=== PATIENT | female | born 1965 | race Caucasian/White ===

== ENCOUNTER 2016-07-31 13:31 | Inpatient (IN) | payer MEDICAID, OTHER ==
--- NOTE | 2016-07-31 14:02 | ED ---
Psych HPI - General Chief Complaint: Psychiatric Symptoms Stated Complaint: suicidal Time Seen by Provider: 07/31/16 13:53 Source: patient, RN notes reviewed Mode of arrival: ambulatory Limitations: no limitations - History of Present Illness Initial Comments: 50-year-old female presents emergency department for psychiatric evaluation. Patient states she is severely depressed and suicidal. She's had suicidal thoughts last 2 months which have been worsening. Patient had a plan to take all over pills and drink antifreeze. She states she actually brought antifreeze but does not drink it. She states she finally told her therapist about how she is feeling because she has been hiding it in which her therapist told her go to the emergency department or should COPD. Patient denies any illicit drug abuse. Patient states that she has a history of alcohol abuse and has recently started drinking again secondary to his depression. Patient states she was taken Zoloft in which she was prescribed last year for similar thoughts of suicide and depression and she states it was helping the time but has recently stopped helping so she stopped taking it. Patient has no physical complaints denies any chest pain, shortness breath, nausea vomiting. - Related Data Home Medications Medication Instructions Recorded Confirmed Mirtazapine [Remeron] 15 mg PO HS 07/31/16 07/31/16 Terbinafine HCl [LamISIL] 250 mg PO DAILY 07/31/16 07/31/16 cloNIDine HCL [Catapres] 0.1 mg PO BID PRN 07/31/16 07/31/16 Allergies Allergy/AdvReac Type Severity Reaction Status Date / Time codeine Allergy Nausea & Verified 07/31/16 14:30 Vomiting Review of Systems ROS Statement: Those systems with pertinent positive or pertinent negative responses have been documented in the HPI. ROS Other: All systems not noted in ROS Statement are negative. Past Medical History Past Medical History: Vascular Disorder Additional Past Medical History / Comment(s): Bilateral legs. History of Any Multi-Drug Resistant Organisms: None Reported Additional Past Surgical History / Comment(s): Right Leg: Laser Surgery to remove varicose veins in 2010. Left Leg: Laser Surgery to remove varicose veins in 2011 Past Anesthesia/Blood Transfusion Reactions: No Reported Reaction Past Psychological History: Anxiety, Depression, PTSD Smoking Status: Never smoker Past Alcohol Use History: Abuse, Daily Additional Past Alcohol Use History / Comment(s): pt admits to drinking "just under 1/5th of liquor per day." Past Drug Use History: Prescription Drug Abuse Additional Drug Use History / Comment(s): mj card - Past Family History Mother Additional Family Medical History / Comment(s): Jaylen reports her mother has struggled with mental illness. General Exam Limitations: no limitations General appearance: alert, in no apparent distress, anxious Head exam: Present: atraumatic, normocephalic, normal inspection Neck exam: Present: normal inspection, full ROM. Absent: tenderness, meningismus, lymphadenopathy Respiratory exam: Present: normal lung sounds bilaterally. Absent: respiratory distress, wheezes, rales, rhonchi, stridor Cardiovascular Exam: Present: normal rhythm, tachycardia, normal heart sounds. Absent: systolic murmur, diastolic murmur, rubs, gallop, clicks GI/Abdominal exam: Present: soft, normal bowel sounds. Absent: distended, tenderness, guarding, rebound, rigid Neurological exam: Present: alert, oriented X3, CN II-XII intact Psychiatric exam: Present: depressed, anxious Skin exam: Present: warm, dry, intact, normal color. Absent: rash Course Vital Signs 07/31/16 13:45 Temperature 96.8 F L Pulse Rate 117 H Respiratory 18 Rate Blood Pressure 141/76 O2 Sat by Pulse 99 Oximetry Medical Decision Making - Lab Data Lab Results 07/31/16 Range/Units 14:30 Urine Opiates Screen Not Detected (NotDetected) Ur Oxycodone Screen Not Detected (NotDetected) Urine Methadone Screen Not Detected (NotDetected) Ur Propoxyphene Screen Not Detected (NotDetected) Ur Barbiturates Screen Not Detected (NotDetected) U Tricyclic Antidepress Not Detected (NotDetected) Ur Phencyclidine Scrn Not Detected (NotDetected) Ur Amphetamines Screen Not Detected (NotDetected) U Methamphetamines Scrn Not Detected (NotDetected) U Benzodiazepines Scrn Detected H (NotDetected) Urine Cocaine Screen Not Detected (NotDetected) U Marijuana (THC) Screen Not Detected (NotDetected) Disposition Clinical Impression: Depression, Suicidal ideation Disposition: ADMITTED IP TO THIS [facility] Condition: Stable Referrals: Hilda Garcia, DO [Primary Care Provider] - 1-2 days
[2016-07-31] MEDS ORDERED: MAG HYDROX/AL HYDROX/SIMETH 30 ML CUP PO PRN (16:36)
[2016-07-31] MEDS: MIRTAZAPINE 15 MG TAB PO SCH (21:15)
[2016-07-31] MEDS: cloNIDine HCL 0.1 MG TAB PO PRN (21:15)
[2016-07-31] MEDS ORDERED: hydrOXYzine PAMOATE 25 MG CAP PO STA (21:17)
[2016-08-01] MEDS: TERBINAFINE 250 MG TAB PO SCH (08:41)
[2016-08-01] MEDS: ACETAMINOPHEN TAB 325 MG TAB PO PRN (08:41)
[2016-08-01] MEDS: LORazepam 1 MG TAB PO PRN ×2 (08:41→19:19)
[2016-08-01 08:52] LABS: Basophils % (A) 0 %; CH 29.7; CHCM 32.8; Eosinophils # (A) 0.2 k/uL (0-0.7); Eosinophils % (A) 3 %; HCT 37.4 % (34.0-46.0); HDW 2.38; HGB 12.4 gm/dL (11.4-16.0); Luc # (Auto) 0.15; Luc % (Auto) 2; Lymphocytes # (A) 2.1 k/uL (1.0-4.8); Lymphocytes % (A) 32 %; MCH 30.2 pg (25.0-35.0); MCHC 33.2 g/dL (31.0-37.0); Mean Platelet Volume 6.6; Monocytes # (A) 0.3 k/uL (0-1.0); Monocytes % (A) 4 %; Neutrophils # (A) 3.9 k/uL (1.3-7.7); Neutrophils % (A) 58 %; RBC 4.11 m/uL (3.80-5.40); RDW 13.7 % (11.5-15.5); WBC 6.7 k/uL (3.8-10.6); WBC (Perox) 6.98
[2016-08-01 10:01] LABS: ALT 16 U/L (9-52); AST 16 U/L (14-36); Alkaline Phosphatase 75 U/L (38-126); Anion Gap 9 mmol/L; Blood Urea Nitrogen 13 mg/dL (7-17); Carbon Dioxide 27 mmol/L (22-30); Chloride 107 mmol/L (98-107); Glucose 92 mg/dL (74-99); Non-African American GFR(MDRD) >60 (>60 ml/min/1.73 sqM); Potassium 3.9 mmol/L (3.5-5.1); Sodium 143 mmol/L (137-145); Total Bilirubin 0.5 mg/dL (0.2-1.3); Total Protein 7.4 g/dL (6.3-8.2)
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
[2016-08-01] MEDS: GABAPENTIN 100 MG CAP PO SCH ×3 (11:22→21:15)
[2016-08-01] MEDS: VENLAFAXINE HCL ER 37.5 MG CAP PO SCH (11:22)
--- NOTE | 2016-08-01 14:24 | P.HPIM ---
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 She stated that she has been dealing with depression for quite some time she has been on Zoloft for quite sometime and has not worked very well patient felt quite depressed and she wanted to come to the ER for evaluation she ended up admitted to the mental health unit for evaluation she was placed on venlafaxine 37.5 mg orally bedtime along with the lithium carbonate 150 mg at bedtime. patient is complaining of increased rash on both upper extremities that has been itching pierced to be macular papular rash patient has not changed any of her detergent or any lotion and she did receive a dose of hydroxyzine yesterday that helped quite a bit we will place her on hydroxyzine 10 mg orally twice every day as needed along with clobetasol cream 0.05% to be applied twice every day as needed. Review of Systems Constitutional: Denies anorexia, Denies chronic headaches, Denies chronic pain, Denies lethargy, Denies malaise Eyes: denies blurred vision, denies bulging eye, denies decreased vision, denies diplopia Ears, nose, mouth and throat: Denies dysphagia, Denies neck lump, Denies swelling in throat, Denies sore throat Cardiovascular: Reports high blood pressure, Denies chest pain, Denies dyspnea on exertion, Denies phlebitis, Denies rapid heart beat, Denies shortness of breath, Denies syncope Respiratory: Denies congestion, Denies cough, Denies cough with sputum, Denies home oxygen, Denies sleep apnea, Denies snoring, Denies wheezing Gastrointestinal: Denies abdominal pain, Denies bloating, Denies BRBPR, Denies excessive gas, Denies melena, Denies nausea, Denies vomiting Genitourinary: Denies dysuria, Denies hematuria Musculoskeletal: Denies fractures, Denies frequent falls, Denies low back pain Musculoskeletal: absent: ankle pain, ankle stiffness, ankle swelling, elbow pain , elbow stiffness, elbow swelling, foot pain, foot stiffness, foot swelling, hand pain, hand stiffness, hand swelling, hip pain, hip stiffness, hip swelling , knee pain, knee stiffness, knee swelling, shoulder pain, shoulder stiffness, shoulder swelling, wrist pain, wrist stiffness, wrist swelling Integumentary: Denies pruritus, Denies rash Neurological: Denies numbness, Denies weakness Psychiatric: Reports anxiety, Reports depression, Reports sleep disturbances, Reports suicidal ideation Endocrine: Denies fatigue, Denies weight change Past Medical History Past Medical History: Hypertension, Vascular Disorder Additional Past Medical History / Comment(s): Bilateral legs, HTM,Vein stripping ,Spondylosis of the cervical spine./ History of Any Multi-Drug Resistant Organisms: None Reported Additional Past Surgical History / Comment(s): Right Leg: Laser Surgery to remove varicose veins in 2010. Left Leg: Laser Surgery to remove varicose veins in 2011,Rhinoplasty. Past Anesthesia/Blood Transfusion Reactions: No Reported Reaction Past Psychological History: Anxiety, Depression, PTSD Smoking Status: Never smoker Past Alcohol Use History: Abuse, Daily Additional Past Alcohol Use History / Comment(s): pt admits to drinking "just under 1/5th of liquor per day." Past Drug Use History: Prescription Drug Abuse Additional Drug Use History / Comment(s): mj card - Past Family History Mother Family Medical History: No Reported History ( mother was in her early 40s and she passed running into traffic she was suicidal. With major depressive disorder) Additional Family Medical History / Comment(s): Jaylen reports her mother has struggled with mental illness. Father Family Medical History: Unable to Obtain ( patient doesn't know much about her father.) Brother(s) Family Medical History: No Reported History ( patient has 2 biological brothers one of them from hanging in long-term, other one approximately in the service.) Son(s) Family Medical History: No Reported History Medications and Allergies Home Medications Medication Instructions Recorded Confirmed Type Mirtazapine [Remeron] 15 mg PO HS 07/31/16 07/31/16 History Terbinafine HCl [LamISIL] 250 mg PO DAILY 07/31/16 07/31/16 History cloNIDine HCL [Catapres] 0.1 mg PO BID PRN 07/31/16 07/31/16 History Allergies Allergy/AdvReac Type Severity Reaction Status Date / Time codeine Allergy Nausea & Verified 07/31/16 14:30 Vomiting Physical Exam Vitals: Vital Signs Temp Pulse Pulse Pulse Resp BP BP 08/01/16 10:24 98 16 147/70 08/01/16 08:44 107 H 18 141/65 08/01/16 06:47 98.1 F 77 18 07/31/16 21:16 91 16 07/31/16 17:30 97.2 F L 98 20 07/31/16 16:50 98.3 F 75 20 147/73 07/31/16 13:45 96.8 F L 117 H 18 141/76 BP Pulse Ox 08/01/16 10:24 08/01/16 08:44 08/01/16 06:47 168/75 07/31/16 21:16 173/91 07/31/16 17:30 142/86 07/31/16 16:50 99 07/31/16 13:45 99 - Constitutional General appearance: no acute distress - EENT Eyes: anicteric sclerae, EOMI, PERRLA, no ptosis, no scleral icterus, normal appearance ENT: hearing grossly normal, NA/AT, normal oropharynx, no thrush Ears: bilateral: normal - Neck Neck: no lymphadenopathy, normal ROM, rigidity, no stridor, no thyromegaly Carotids: bilateral: upstroke normal Thyroid: bilateral: normal size - Respiratory Respiratory: bilateral: diminished, negative: dullness, rales, rhonchi, wheezing , prolonged expiration, prolonged inspiration - Cardiovascular Rhythm: regular Heart sounds: normal: S1, S2 Abnormal Heart Sounds: no rub, no S3 Gallop, no S4 Gallop, no click - Gastrointestinal General gastrointestinal: normal bowel sounds, no soft, no tenderness, no umbilical hernia, no ventral hernia - Integumentary Integumentary: normal, normal turgor, rash ( bilateral upper extremity maculopapular rash service of contact dermatitis./) - Neurologic Neurologic: CNII-XII intact - Musculoskeletal Musculoskeletal: strength equal bilaterally - Psychiatric Psychiatric: A&O x's 3, no appropriate affect, no intact judgment & insight Results CBC & Chem 7: 08/01/16 08:08 08/01/16 08:08 Labs: Abnormal Lab Results - Last 24 Hours (Table) 07/31/16 08/01/16 Range/Units 14:30 08:08 TSH 11.400 H (0.465-4.680) mIU/L U Benzodiazepines Scrn Detected H (NotDetected) Thrombosis Risk Factor Assmnt - DVT/VTE Prophylaxis DVT/VTE Prophylaxis: Low risk, early ambulation encouraged Assessment and Plan Plan: assessment and plan: 1. depression with suicidal ideation. patient was started on venlafaxine 37.5 mg orally once every day, lithium carbonate 150 mg orally bedtime, as well as Ativan as needed. we'll be placed on suicidal precautions and she will participate with the mental health unit programs. 2. mood disorder. Continue patient on Remeron 15 mg at bedtime along with venlafaxine 37.5 mg orally once at bedtime along with Ativan as needed. 3. alcohol use and dependence. Patient will be monitored for alcohol withdrawal she will be placed on gabapentin 100 mg orally 3 times every day, she is also started on clonidine 0.1 mg orally twice every day as needed patient also will be monitored for any actual seizure. 4. skin rash in bilateral upper extremities service of chondrodermatitis. Hydroxyzine 10 mg orally twice every day as needed, clobetasol cream 0.05% to be applied twice every day. 5. onychomycosis. continue terbinafine 1250 mg orally once every day, monitor the patient liver function tests as well as CBC every 4-6 weeks. 6. thank you for the consult we will follow the patient with you.
[2016-08-01] MEDS: CLOBETASOL PROP 0.05% CR 15GM TOPICAL SCH ×2 (14:47→21:15)
[2016-08-01] MEDS: cloNIDine HCL 0.1 MG TAB PO PRN (18:09)
[2016-08-01] MEDS ORDERED: LITHIUM CARBONATE 150 MG CAP PO SCH (21:00)
[2016-08-01] MEDS: MIRTAZAPINE 15 MG TAB PO SCH (21:15)
[2016-08-02] MEDS: LEVOTHYROXINE 25 MCG TAB PO SCH (05:34)
[2016-08-02] MEDS: cloNIDine HCL 0.1 MG TAB PO PRN ×2 (06:35→22:03)
[2016-08-02] MEDS: VENLAFAXINE HCL ER 37.5 MG CAP PO SCH (09:23)
[2016-08-02] MEDS: TERBINAFINE 250 MG TAB PO SCH (09:24)
[2016-08-02] MEDS: GABAPENTIN 100 MG CAP PO SCH ×3 (09:26→22:00)
[2016-08-02] MEDS: LORazepam 1 MG TAB PO PRN ×2 (09:26→16:36)
[2016-08-02] MEDS: CLOBETASOL PROP 0.05% CR 15GM TOPICAL SCH ×2 (09:26→20:36)
--- NOTE | 2016-08-02 15:40 | P.PN ---
Progress Note - Text INTERVERAL HISTORY: Patient was called, she was sleeping in bed. Patient states she is feeling a bit sedated. We discussed the side effects of of medication prescribed. It is also noted that her TSH was elevated and the hospitalist started her on medication. Patient reports that she has not had thoughts of suicide today, she is surprised by this. Reports that she is hopeful that the medications will work, Still reporting dysphoria. MENTAL STATUS EXAM: Alert and oriented 3 neatly groomed makeup, speech was normal volume rate production, coherent logical goal directed. No JOE no FOI no delusions no ideas of reference. No auditory or visual hallucinations. Memory "grossly intact. Denies suicidal ideation. Mood disorder, unspecified Alcohol use disorder, severe Suicidal ideation Hypothyroid PLAN: Continue inpatient psychiatric hospitalization, for safety and treatment purposes. Suicide precautions 15 minute checks Although patient is smiling and appears euthymic, she reports depression. Some recent studies have suggested that there are patients who are depressed but presented as if euthymic. Will continue to assess her and monitor her response to treatment. Continue gabapentin 100 mg 3 times a day pain/anxiety/EtOH use Increase Effexor to 75 mg daily Increase lithium 300 mg daily at bedtime. Continue Remeron 15 mg daily at bedtime Patient started on low-dose Synthroid 0.25
[2016-08-02] MEDS: MIRTAZAPINE 15 MG TAB PO SCH (20:39)
[2016-08-02] MEDS: LITHIUM CARBONATE 300 MG CAP PO SCH (20:39)
[2016-08-03] MEDS: LEVOTHYROXINE 25 MCG TAB PO SCH (06:12)
[2016-08-03] MEDS: LORazepam 1 MG TAB PO PRN ×2 (06:34→14:35)
[2016-08-03] MEDS ORDERED: VENLAFAXINE HCL 75 MG TAB PO SCH (09:00)
--- NOTE | 2016-08-03 09:12 | P.PN ---
Progress Note - Text INTERVERAL HISTORY: Discussed in team treatment meeting, review of record, met with patient. Patient seen in hallway after breakfast, came to office. Patient reports that she had a restless night feeling hot and sweaty. Possibly this is due to an increase of the antidepressants and/or potentiation of antidepressants with lithium. She denies any other side effects related to the increase of lithium or Effexor. Patient reports that this suicide ideation has diminished, although still present. She has been participating in groups, says she has to push herself, so more than likely still having lack of motivation and fatigue and anhedonia. As noted yesterday her TSH was elevated and she has just started on Levothyroxine. Reports that she is hopeful that the medications will work, Still reporting dysphoria. MENTAL STATUS EXAM: Alert and oriented 3 fair groomed no makeup, speech was normal volume rate production, coherent logical goal directed. No JOE no FOI no delusions no ideas of reference. No auditory or visual hallucinations. Memory "grossly intact. Denies suicidal ideation. Mood disorder, unspecified Alcohol use disorder, severe Suicidal ideation Hypothyroid PLAN: Continue inpatient psychiatric hospitalization, for safety and treatment purposes. Suicide precautions 15 minute checks Although patient is smiling and appears euthymic, she reports depression. Some recent studies have suggested that there are patients who are depressed but present euthymic. Will continue to assess her and monitor her response to treatment. Continue gabapentin 100 mg 3 times a day pain/anxiety/EtOH use Increase Effexor to 150 mg today, with plan to increase tomorrow 225mg. Continue lithium 300 mg daily at bedtime, for purported protection from suicide. Check lithium level tomorrow, even though not at steady state for 5 days, this is a low dose. Continue Remeron 15 mg daily at bedtime Patient started on low-dose Synthroid 0.25
[2016-08-03] MEDS: CLOBETASOL PROP 0.05% CR 15GM TOPICAL SCH ×2 (09:17→21:24)
[2016-08-03] MEDS: TERBINAFINE 250 MG TAB PO SCH (09:18)
[2016-08-03] MEDS: cloNIDine HCL 0.1 MG TAB PO PRN (09:19)
[2016-08-03] MEDS: VENLAFAXINE HCL ER 150 MG CAP PO SCH (09:19)
[2016-08-03] MEDS: GABAPENTIN 100 MG CAP PO SCH ×3 (09:39→21:21)
[2016-08-03] MEDS: hydrOXYzine HCL 10 MG TAB PO PRN (10:14)
[2016-08-03] MEDS: MAGNESIUM HYDROXIDE 2,400 MG/10 ML CUP PO PRN (14:34)
[2016-08-03] MEDS: MIRTAZAPINE 15 MG TAB PO SCH (21:21)
[2016-08-03] MEDS: LITHIUM CARBONATE 300 MG CAP PO SCH (21:21)
[2016-08-04] MEDS: LEVOTHYROXINE 25 MCG TAB PO SCH (05:40)
[2016-08-04] MEDS: TERBINAFINE 250 MG TAB PO SCH (08:58)
[2016-08-04] MEDS: CLOBETASOL PROP 0.05% CR 15GM TOPICAL SCH ×2 (08:58→20:37)
[2016-08-04] MEDS: GABAPENTIN 100 MG CAP PO SCH ×3 (08:58→21:31)
[2016-08-04] MEDS: VENLAFAXINE HCL ER 150 MG CAP PO SCH (08:59)
[2016-08-04] MEDS: VENLAFAXINE HCL ER 75 MG CAP PO SCH (09:30)
[2016-08-04] MEDS: LORazepam 1 MG TAB PO PRN ×2 (09:30→20:38)
--- NOTE | 2016-08-04 10:38 | P.PN ---
Progress Note - Text INTERVERAL HISTORY: Discussed in team treatment meeting, review of record, met with patient. Patient seen in hallway after breakfast, reading a book, came to office. Patient reports that she slept well last night but had movement in leg and arm, was not disturbed by this. She denies any other side effects related to the increase of lithium or Effexor. Patient reports that this suicide ideation has diminished, although still present. She has been attending groups, today says she spoke for the first time, feels it might be helpful. Feels she is more motivated and has picked up a book, compared to a week ago this is an improvement and says although having to reread paragraphs this is good. Slight change in motivation and fatigue and anhedonia. As noted yesterday her TSH was elevated and she has just started on Levothyroxine. Reports that she is hopeful that the medications will work, Still reporting dysphoria. MENTAL STATUS EXAM: Alert and oriented 3 well groomed with makeup, speech was normal volume rate production, coherent logical goal directed. No JOE no FOI no delusions no ideas of reference. No auditory or visual hallucinations. Memory "grossly intact" but has difficulty in concentration and attention, has to reread. Mood dysphoric, affect full range, decreased intensity Denies suicidal ideation. Mood disorder, unspecified Alcohol use disorder, severe Suicidal ideation Hypothyroid PLAN: Continue inpatient psychiatric hospitalization, for safety and treatment purposes. Has reported myoclonic jerking, this is likely due to serotonin medications, concern would be if she progressed to Serotonin Syndrome. Will monitor closely, ask vital to be taken Q shift. Continue suicide precautions 15 minute checks Although patient is smiling and appears euthymic, she reports continued dysphoria, diminished but not absent suicidal ideation. Some recent studies have suggested that there are patients who are depressed but present as if euthymic. Will continue to assess her and monitor her response to treatment. Continue gabapentin 100 mg 3 times a day pain/anxiety/EtOH use Increase Effexor to 225mg today, with plan to monitor for serotonin syndrome, bruxism or restless leg. Continue lithium 300 mg daily at bedtime, for purported protection from suicide. Check lithium level tomorrow, even though not at steady state for 5 days, this is a low dose. Continue Remeron 15 mg daily at bedtime Patient started on low-dose Synthroid 0.25
[2016-08-04] MEDS: ACETAMINOPHEN TAB 325 MG TAB PO PRN (12:56)
[2016-08-04] MEDS: cloNIDine HCL 0.1 MG TAB PO PRN (17:18)
[2016-08-04] MEDS: MIRTAZAPINE 15 MG TAB PO SCH (20:37)
[2016-08-04] MEDS: LITHIUM CARBONATE 300 MG CAP PO SCH (20:37)
[2016-08-05] MEDS: LEVOTHYROXINE 25 MCG TAB PO SCH (05:40)
[2016-08-05] MEDS: CLOBETASOL PROP 0.05% CR 15GM TOPICAL SCH ×2 (08:22→20:54)
[2016-08-05] MEDS: TERBINAFINE 250 MG TAB PO SCH (08:22)
[2016-08-05] MEDS: GABAPENTIN 100 MG CAP PO SCH ×3 (08:22→20:54)
[2016-08-05] MEDS: VENLAFAXINE HCL ER 75 MG CAP PO SCH (08:23)
[2016-08-05] MEDS: LORazepam 1 MG TAB PO PRN ×2 (08:25→17:57)
--- NOTE | 2016-08-05 14:03 | P.PN ---
Progress Note - Text Interval history: Patient seen in cross coverage today for Dr. De Paz. She reports that she is feeling better mood bonilla. She does describe last night after he took the Remeron she felt a "heady" feeling and also felt warm. She did get up and sit in the library for a while and then went back to sleep and was able to sleep about 6 hours. She is eating well. She is taking the Ativan about twice a day which helps her anxiety level. Mental status exam: She is alert and cooperative with the interview. Her speech is fluent, not rapid or pressured. Her thought processes are organized. Her mood overall seems to be improved. She denies any thoughts of harm to self or others. No evidence of psychosis or agitation. Plan: Patient will be maintained on current psychotropic medications. She relates that the Effexor XR has just been titrated. We will continue to monitor for side effects and monitor her ongoing response. Continue to cover this patient for Dr. De Paz through the weekend.
[2016-08-05] MEDS: hydrOXYzine HCL 10 MG TAB PO PRN (15:18)
[2016-08-05] MEDS: LITHIUM CARBONATE 300 MG CAP PO SCH (20:54)
[2016-08-05] MEDS: MIRTAZAPINE 15 MG TAB PO SCH (20:54)
[2016-08-05] MEDS: cloNIDine HCL 0.1 MG TAB PO PRN (20:55)
[2016-08-06] MEDS: LEVOTHYROXINE 25 MCG TAB PO SCH (06:18)
[2016-08-06] MEDS: GABAPENTIN 100 MG CAP PO SCH ×3 (08:56→20:45)
[2016-08-06] MEDS: CLOBETASOL PROP 0.05% CR 15GM TOPICAL SCH ×2 (08:56→20:45)
[2016-08-06] MEDS: TERBINAFINE 250 MG TAB PO SCH (08:56)
[2016-08-06] MEDS: VENLAFAXINE HCL ER 75 MG CAP PO SCH (08:56)
[2016-08-06] MEDS: LORazepam 1 MG TAB PO PRN ×2 (08:57→18:00)
--- NOTE | 2016-08-06 13:50 | P.PN ---
Progress Note - Text Interval history: Patient is seen in cross coverage today in for Dr. De Paz. She reports that the symptoms that she had 2 nights ago of like feeling a warm sensation and that her pupils dilating were improved this past night. She feels like she got about 7 hours of sleep. She is eating well today. She is attending some groups. She does talk about potential discharge planning for tomorrow. She also talks about outpatient follow-up. Mental status exam: She is alert and cooperative with the interview. Her speech is fluent, not rapid or pressured. Thought processes organized. Her mood is improved and she feels that it's even. She denies any thoughts of harm to self or others. She does not show any active evidence of psychosis. She does not show any agitation. Plan: Patient will be maintained on current psychotropic medication regimen we will continue to monitor for any adverse side effects. Dr. De Paz resume care this patient starting tomorrow. Look for potential discharge planning for tomorrow.
[2016-08-06] MEDS: hydrOXYzine HCL 10 MG TAB PO PRN (15:21)
[2016-08-06] MEDS: MAGNESIUM HYDROXIDE 2,400 MG/10 ML CUP PO PRN (15:22)
[2016-08-06] MEDS: LITHIUM CARBONATE 300 MG CAP PO SCH (20:45)
[2016-08-06] MEDS: cloNIDine HCL 0.1 MG TAB PO PRN (20:46)
[2016-08-06] MEDS: MIRTAZAPINE 15 MG TAB PO SCH (20:46)
[2016-08-07] MEDS: LEVOTHYROXINE 25 MCG TAB PO SCH (06:23)
[2016-08-07 06:54] VITALS: TEMP 98.1
[2016-08-07] MEDS: TERBINAFINE 250 MG TAB PO SCH (08:32)
[2016-08-07] MEDS: cloNIDine HCL 0.1 MG TAB PO PRN (08:37)
[2016-08-07] MEDS: LORazepam 1 MG TAB PO PRN (08:37)
[2016-08-07] MEDS: VENLAFAXINE HCL ER 75 MG CAP PO SCH (08:37)
[2016-08-07] MEDS: GABAPENTIN 100 MG CAP PO SCH (08:37)
[2016-08-07 08:40] VITALS: BP 122/75; PULSE 131; RESP 16
--- NOTE | 2016-08-07 09:27 | P.DS ---
Providers Date of admission: 07/31/16 16:27 Expected date of discharge: 08/07/16 Attending physician: Aruna De Paz MD Consults: 07/31/16 16:36 Consult Physician Routine Consulting Provider: Yaritza Hawthorne Consult Reason/Comments: history and physical Do you want consulting provider notified?: Yes Primary care physician: Hilda Garcia Hospital Course: ADMISSION HISTORY: The patient admitted for feeling suicidal, chronically, for months. She also reports that she is feeling depressed. She was placed on Zoloft in October of last year 50 mg, and found it helpful immediately for the suicidal ideation, but it did nothing for her mood she still had a hard time getting out of bed, showering, feeling motivated, and enjoying activities. She recently tapered herself off of it 2 weeks ago, and the suicidal ideation became daily consuming her thoughts for most of the day. She reports that she has had the suicidal ideation in the past but never as constant or consuming as now, she also reports depression. She reports that in her 20s she had severe alcoholism, violence and chaotic life. She began in her 30s to drink somewhat less, her life was less violent and chaotic. And in her 40s also somewhat less alcohol. As she has begun her 50s she has made the decision that she needs to abstain, and she attended [facility] and has been abstinent off and on. Most recently for the last month or so she has been drinking more to help with sleep. She reports she's been drinking a half of a fifth 2-3 3 times a week. She denied history of delirium tremors Patient denies episodes of high energy, decreased need for sleep. She does endorse episodes of risk-taking behavior such as promiscuous sexual activity but this did not occur in an episode of decreased need for sleep or other symptoms consistent with bipolar mark or hypomania. No history of psychosis. HOSPITAL COURSE: Patient was visible on the unit through most of her stay. After several days of medication she reported decreased suicidal ideation. She never displayed dysphoria, but reported dysphoria,depression, anxiety. Has tolerated a combination of medication starting with lithium at bedtime 300 mg low dose for purported reduction of suicide. Combining that with Effexor XR to 225 mg a day. She had been on Remeron 15 mg at bedtime and that was kept. She had side effects of feeling hot, but not sweating, no increased temperature, some movements at night that might be myoclonic and we checked her VS regularly and she is noted to have rapid heart rate, she has been on clonidine at home . The warm sensation resolved after 2 nights. At one point there was a concern if she was moving into serotonin syndrome due to myoclonic jerks but this did not occur. She has been attending groups, today says she spoke for the first time, feels it might be helpful. Feels she is more motivated and has picked up a book, compared to a week ago this is an improvement with improved concentration and memory. Slight change in motivation, fatigue and anhedonia. It was noted during this hospitalization that her TSH was elevated and she was started on Levothyroxine. Reports that she is hopeful that the medications will work, Reports feeling sad but says no up and down, and no suicidal ideation. Patient continues have a rapid pulse and her blood pressure is within normal limits. MENTAL STATUS EXAM: Alert and oriented 3 well groomed with makeup, speech was normal volume rate production, coherent logical goal directed. No JOE no FOI no delusions no ideas of reference. No auditory or visual hallucinations. Memory "grossly intact" but has difficulty in concentration and attention, has to reread. Mood neutral, affect full range, decreased intensity Denies suicidal ideation. Mood disorder, unspecified Alcohol use disorder, severe, in early remission Suicidal ideation, resolved Hypothyroid PLAN: Discharge today. SW will arrange outpatient psychiatric treatment and recommend she receive CBT. Gabapentin 100 mg 3 times a day pain/anxiety/EtOH use Effexor to 225mg QDAY. Continue lithium 300 mg daily at bedtime, for purported protection from suicide. Continue Remeron 15 mg daily at bedtime Continue Synthroid 0.25 Pertinent Studies: TSH was elevated Procedures: none Plan - Discharge Summary New Discharge Prescriptions: New Gabapentin [Neurontin] 100 mg PO TID #90 cap hydrOXYzine HCL [Atarax] 10 mg PO BID PRN #30 tab PRN Reason: Rash Levothyroxine Sodium [Synthroid] 25 mcg PO DAILY@0630 #30 tab [place] Carbonate 300 mg PO HS #30 cap Venlafaxine HCl ER [Effexor XR] 225 mg PO DAILY #30 cap Continue cloNIDine HCL [Catapres] 0.1 mg PO BID PRN PRN Reason: HIGH BLOOD PRESSURE Terbinafine HCl [LamISIL] 250 mg PO DAILY Mirtazapine [Remeron] 15 mg PO HS Discharge Medication List Mirtazapine [Remeron] 15 mg PO HS 07/31/16 [History] Terbinafine HCl [LamISIL] 250 mg PO DAILY 07/31/16 [History] cloNIDine HCL [Catapres] 0.1 mg PO BID PRN 07/31/16 [History] Gabapentin [Neurontin] 100 mg PO TID #90 cap 08/07/16 [Rx] Levothyroxine Sodium [Synthroid] 25 mcg PO DAILY@0630 #30 tab 08/07/16 [Rx] [place] Carbonate 300 mg PO HS #30 cap 08/07/16 [Rx] Venlafaxine HCl ER [Effexor XR] 225 mg PO DAILY #30 cap 08/07/16 [Rx] hydrOXYzine HCL [Atarax] 10 mg PO BID PRN #30 tab 08/07/16 [Rx] Follow up Appointment(s)/Referral(s): Hilda Garcia DO [Primary Care Provider] - 1-2 days
[2016-08-07] MEDS: CLOBETASOL PROP 0.05% CR 15GM TOPICAL SCH (11:21)
== END 2016-08-07 13:59 | disposition home or self-care (01) | DRG 885 ==
LOC: EC 13:31 → 3MHU 16:27
PROVIDERS: ADMIT Psychiatry & Neurology Addiction Medicine; ATTEND Psychiatry & Neurology Addiction Medicine
DX: F39 Unspecified mood [affective] disorder (principal); R45.851 Suicidal ideations; I10 Essential (primary) hypertension; B35.1 Tinea unguium; F10.21 Alcohol dependence, in remission; J44.9 Chronic obstructive pulmonary disease, unspecified; E03.9 Hypothyroidism, unspecified; F43.10 Post-traumatic stress disorder, unspecified; Z79.899 Other long term (current) drug therapy; Z81.8 Family history of other mental and behavioral disorders; Z88.5 Allergy status to narcotic agent
CPT/HCPCS: 80053; 80178; 80306; 82075; 84439; 84443; 84481; 85025

== ENCOUNTER → 2016-08-31 | Outpatient (CLI) | payer OTHER ==
[2016-08-31 10:38] LABS: Blood Urea Nitrogen 14 mg/dL (7-17); Cholesterol 197 mg/dL (<200); Glucose 93 mg/dL (74-99); HDL Cholesterol 77 mg/dL (40-60); Lithium 1.2 mmol/L; Non-African American GFR(MDRD) 58 (>60 ml/min/1.73 sqM); Triglycerides 75 mg/dL (<150)
[2016-08-31 10:47] LABS: Hemoglobin A1C 5.5 % (4.2-6.1)
== END | disposition home or self-care (01) ==
LOC: LABWHC1 06:38
PROVIDERS: ATTEND Psychiatry & Neurology Psychiatry
DX: Z51.81 Encounter for therapeutic drug level monitoring (principal); Z79.899 Other long term (current) drug therapy
CPT/HCPCS: 36415; 80061; 80178; 82565; 82947; 83036; 84439; 84443; 84520

== ENCOUNTER → 2022-09-29 | Outpatient (CLI) | payer OTHER ==
--- NOTE | 2022-09-29 12:50 | P.GSHP ---
History of Present Illness H&P Date: 09/29/22 Chief Complaint: invasive ductal and lobular features right breast cancer Gaby is a 56 year old female seen in consultation for Dr. Reed regarding a right breast cancer. The patient saw the lump in her right breast about one month ago, she could also feel the [place]. [place] [address] this was BIRADS 1 . She had a [place] [address] recommendation was for right breast biopsy. She subsequently underwent a right breast ultrasound-guided core biopsy on . This revealed an 11 mm irregular hypoechoic mass at the 4 o'clock position of the right breast. Pathology confirmed this to be an invasive ductal with lobular features carcinoma. This is grade 2 ER/MD positive HER-2/aure low reactivity being sent for a FISH analysis. She also felt a lump under her left arm, but the lump dissipated. Has not noted any recent trauma or infection of the breast. She has not had any surgery on her breast. Caffeine: pop occasional nicotine: none, smokes THC daily chocolate: several times a week BCP: from 14 to 17 hormones: not taking anything Family history: maternal aunt: bilateral breast cancer maternal aunt: bilateral mastectomy maternal cousin: 5 types of cancer Hormonal History: menarche: 14 [id number], breast fed: no, age at first : 18 menopause: ablation in 50's Surgical history: Uterine ablation bilateral varicose vein ablation rhinoplasty twice chin lift Medical History: radiculopathy left shoulder scoliosis bipolar anxiety/depression PTSD History: Nicotine: Negative Alcohol:alcoholism problems in the past drug: Smokes THC daily - Constitutional Constitutional: Denies chills, Denies fever - EENT Eyes: denies blurred vision, denies pain Ears: deny: decreased hearing, tinnitus Ears, nose, mouth and throat: Reports headache, Denies sore throat - Breasts Breasts: bilateral: as per HPI - Cardiovascular Cardiovascular: Reports shortness of breath, Denies chest pain - Respiratory Respiratory: Denies cough, Denies 7 - Gastrointestinal Gastrointestinal: Denies abdominal pain, Denies diarrhea, Denies nausea, Denies vomiting - Genitourinary (Female) Genitourinary: Denies dysuria, Denies hematuria - Menstruation Menstruation: Reports postmenopausal - Musculoskeletal Comment: back and neck pain Musculoskeletal: Reports as per HPI - Integumentary Comment: Eczema - Neurological Comment: none - Psychiatric Comment: bipolar Psychiatric: Reports anxiety, Reports depression - Endocrine Endocrine: Reports weight change - Hematologic/Lymphatic Comment: none - Allergic/Immunologic Allergic/Immunologic: Reports as per HPI, Reports seasonal allergies Past Medical History Past Medical History: Hypertension, Vascular Disorder Additional Past Medical History / Comment(s): Bilateral legs, HTM,Vein stripping,Spondylosis of the cervical spine./ History of Any Multi-Drug Resistant Organisms: None Reported Additional Past Surgical History / Comment(s): Right Leg: Laser Surgery to remove varicose veins in 2010. Left Leg: Laser Surgery to remove varicose veins in 2011,Rhinoplasty. Past Anesthesia/Blood Transfusion Reactions: No Reported Reaction Past Psychological History: Anxiety, Depression, PTSD Past Alcohol Use History: Abuse, Daily Additional Past Alcohol Use History / Comment(s): pt admits to drinking "just under 1/5th of liquor per day." Past Drug Use History: Prescription Drug Abuse Additional Drug Use History / Comment(s): mj card - Past Family History Mother Family Medical History: No Reported History ( mother was in her early 40s and she passed running into traffic she was suicidal. With major depressive disorder) Additional Family Medical History / Comment(s): Jaylen reports her mother has struggled with mental illness. Father Family Medical History: Unable to Obtain ( patient doesn't know much about her father.) Brother(s) Family Medical History: No Reported History ( patient has 2 biological brothers one of them from hanging in penitentiary, other one approximately in the service.) Son(s) Family Medical History: No Reported History Medications and Allergies Home Medications Medication Instructions Recorded Confirmed Type cloNIDine HCL [Catapres] 0.1 mg PO BID PRN 07/31/16 07/31/16 History Levothyroxine Sodium [Synthroid] 25 mcg PO DAILY@0630 #30 tab 08/07/16 Rx Losartan [Cozaar] 25 mg PO DAILY 09/29/22 09/29/22 History Allergies Allergy/AdvReac Type Severity Reaction Status Date / Time codeine Allergy Nausea & Verified 09/29/22 12:23 Vomiting morphine AdvReac Vomiting Unverified 09/29/22 12:23 Surgical - Exam - General no distress - Eyes normal ocular movement - Neck trachea midline - Respiratory normal respiratory effort, clear to auscultation - Cardiovascular Rhythm: regular Heart Sounds: normal: S1, S2 - Abdomen Abdomen: soft, non tender, no guarding, no rigid, no rebound - Integumentary normal turgor - Neurologic no disoriented, no combative - Musculoskeletal normal gait, normal posture - Psychiatric oriented to time, oriented to person, oriented to place, speech is normal, memory intact Breast Exam: BRA: 34C Inspection: Bilateral grade 2 ptosis; echymosis right breast related to recent biopsy Palpation: Right breast multi-positional exam nodularity in the medial aspect near the periareolar region approximately 2 cm in size freely mobile Right axilla: No adenopathy of concern Left breast: Multiple positional exam no dominant masses or nodules of concern Left axilla: No adenopathy of concern Results Mammogram and ultrasound reviewed with radiology Assessment and Plan Assessment: Impression: radiculopathy left shoulder scoliosis bipolar anxiety/depression PTSD Right breast invasive ductal with lobular features carcinoma Plan: Presentation of case at tumor board left breast mammogram genetic testing Cc: Dr. Reed
== END ==
LOC: WWCWWP 12:06
PROVIDERS: ATTEND Surgery
DX: C50.311 Malignant neoplasm of lower-inner quadrant of right female breast (principal); M41.9 Scoliosis, unspecified; F41.9 Anxiety disorder, unspecified; F31.9 Bipolar disorder, unspecified; F17.200 Nicotine dependence, unspecified, uncomplicated; F43.10 Post-traumatic stress disorder, unspecified; I10 Essential (primary) hypertension; Z17.0 Estrogen receptor positive status [ER+]; Z85.3 Personal history of malignant neoplasm of breast; Z79.890 Hormone replacement therapy; Z79.899 Other long term (current) drug therapy; Z88.5 Allergy status to narcotic agent

== ENCOUNTER → 2022-10-11 | Outpatient (CLI) | payer OTHER ==
--- NOTE | 2022-10-12 11:57 | MM ---
Reason for Exam: Additional evaluation requested from prior study. Last screening mammogram was performed less than 1 month ago. Patient History: Menarche at age 14. First Full-Term at age 18. Postmenopausal. 09/21/2022, Ultrasound-Guided Core Biopsy on the Right side. Maternal aunt had breast cancer under age 50. Risk Values: America 5 year model risk: 1.0%. NCI Lifetime model risk: 6.2%. Prior Study Comparison: 12/12/2016 Bilateral Screening Mammogram, [facility]. 10/21/2021 Bilateral Screening Mammogram, [facility]. 09/13/2022 Right Diagnostic Mammogram, [facility]. 09/13/2022 Right Diagnostic Ultrasound, [facility]. Tissue Density: Left: The breast tissue is heterogeneously dense. This may lower the sensitivity of mammography. Findings: Analyzed By CAD. No new suspicious masses, calcifications or distortions. Overall Assessment: Negative, BI-RAD 1 Management: Screening Mammogram of both breasts in 1 year. Results were given to the patient verbally at the time of exam. Patient should continue monthly self-breast exams. A clinical breast exam by your physician is recommended on an annual basis. This exam should not preclude additional follow-up of suspicious palpable abnormalities. Note on America scores and lifetime risk: 1. A America score greater than 3% is considered moderate risk. If this is the case, consider specialist referral to assess eligibility for a risk reducing agent. 2. If overall lifetime risk for the development of breast cancer is 20% or higher, the patient may qualify for future screening with alternating mammogram and breast MRI. Electronically signed and approved by: Mark Bird DO
== END | disposition home or self-care (01) ==
LOC: RADMAMWWP 12:46
PROVIDERS: ATTEND Surgery
DX: C50.311 Malignant neoplasm of lower-inner quadrant of right female breast (principal); R92.8 Other abnormal and inconclusive findings on diagnostic imaging of breast; Z78.0 Asymptomatic menopausal state; Z80.3 Family history of malignant neoplasm of breast
CPT/HCPCS: 77065; G0279; 77061

== ENCOUNTER 2022-12-19 09:35 | Day surgery (SDC) | payer OTHER ==
--- NOTE | 2022-12-14 16:40 | P.PN ---
Subjective Progress Note Date: 12/14/22 invasive ductal and lobular features right breast cancer Gaby is a 56 year old female seen in consultation for Dr. Reed regarding a right breast cancer. The patient saw the lump in her right breast about one month ago, she could also feel the lump. A bilateral mammogram was done on this was BIRADS 1 . She had a right breast diagnostic mammogram and ultrasound on recommendation was for right breast biopsy. She subsequently underwent a right breast ultrasound-guided core biopsy on . This revealed an 11 mm irregular hypoechoic mass at the 4 o'clock position of the right breast. Pathology confirmed this to be an invasive ductal with lobular features carcinoma. This is grade 2 ER/SD positive HER-2/aure low reactivity being sent for a FISH analysis. She also felt a lump under her left arm, but the lump dissipated. Has not noted any recent trauma or infection of the breast. She has not had any surgery on her breast. left breast mammogram; BIRAD 1 genetic testing: negative Her2 testing: negative presentation of case at tumor board 10-31-22 the patient would prefer a lumpectomy if possible note radiation oncology reviewed 11-02-22 note medical onoclogy 10-04-22 reviewed; needs oncotype testing Caffeine: pop occasional nicotine: none, smokes THC daily chocolate: several times a week BCP: from 14 to 17 hormones: not taking anything Family history: maternal aunt: bilateral breast cancer maternal aunt: bilateral mastectomy maternal cousin: 5 types of cancer Hormonal History: menarche: 14 [id number], breast fed: no, age at first : 18 menopause: ablation in 50's Surgical history: Uterine ablation bilateral varicose vein ablation rhinoplasty twice chin lift Medical History: radiculopathy left shoulder scoliosis bipolar anxiety/depression PTSD History: Nicotine: Negative Alcohol:alcoholism problems in the past drug: Smokes THC daily - Constitutional Constitutional: Denies chills, Denies fever - EENT Eyes: denies blurred vision, denies pain Ears: deny: decreased hearing, tinnitus Ears, nose, mouth and throat: Reports headache, Denies sore throat - Breasts Breasts: bilateral: as per HPI - Cardiovascular Cardiovascular: Reports shortness of breath, Denies chest pain - Respiratory Respiratory: Denies cough - Gastrointestinal Gastrointestinal: Denies abdominal pain, Denies diarrhea, Denies nausea, Denies vomiting - Genitourinary (Female) Genitourinary: Denies dysuria, Denies hematuria - Menstruation Menstruation: Reports postmenopausal - Musculoskeletal Comment: back and neck pain Musculoskeletal: Reports as per HPI - Integumentary Comment: Eczema - Neurological Comment: none - Psychiatric Comment: bipolar Psychiatric: Reports anxiety, Reports depression - Endocrine Endocrine: Reports weight change - Hematologic/Lymphatic Comment: none - Allergic/Immunologic Allergic/Immunologic: Reports as per HPI, Reports seasonal allergies Past Medical History Past Medical History: Hypertension, Vascular Disorder Additional Past Medical History / Comment(s): Bilateral legs, HTM,Vein stripping,Spondylosis of the cervical spine./ History of Any Multi-Drug Resistant Organisms: None Reported Additional Past Surgical History / Comment(s): Right Leg: Laser Surgery to remove varicose veins in 2010. Left Leg: Laser Surgery to remove varicose veins in 2011,Rhinoplasty. Past Anesthesia/Blood Transfusion Reactions: No Reported Reaction Past Psychological History: Anxiety, Depression, PTSD Past Alcohol Use History: Abuse, Daily Additional Past Alcohol Use History / Comment(s): pt admits to drinking "just under 1/5th of liquor per day." Past Drug Use History: Prescription Drug Abuse Additional Drug Use History / Comment(s): mj card - Past Family History Mother Family Medical History: No Reported History ( mother was in her early 40s and she passed running into traffic she was suicidal. With major depressive disorder) Additional Family Medical History / Comment(s): Jaylen reports her mother has struggled with mental illness. Father Family Medical History: Unable to Obtain ( patient doesn't know much about her father.) Brother(s) Family Medical History: No Reported History ( patient has 2 biological brothers one of them from hanging in alf, other one approximately in the service.) Son(s) Family Medical History: No Reported History Medications and Allergies Home Medications Medication Instructions Recorded Confirmed Type cloNIDine HCL [Catapres] 0.1 mg PO BID PRN 07/31/16 07/31/16 History Levothyroxine Sodium [Synthroid] 25 mcg PO DAILY@0630 #30 tab 08/07/16 Rx Losartan [Cozaar] 25 mg PO DAILY 09/29/22 09/29/22 History Allergies Allergy/AdvReac Type Severity Reaction Status Date / Time codeine Allergy Nausea & Verified 09/29/22 12:23 Vomiting morphine AdvReac Vomiting Unverified 09/29/22 12:23 Objective - Vital Signs Vital signs: Intake & Output 12/13/22 12/14/22 12/14/22 18:59 06:59 18:59 Weight 65.771 kg - Constitutional General appearance: Present: cooperative - EENT Eyes: Present: EOMI ENT: Present: hearing grossly normal - Neck Neck: Present: normal ROM - Respiratory Respiratory: bilateral: CTA - Cardiovascular Heart sounds: normal: S1, S2 - Integumentary Integumentary: Present: normal turgor - Musculoskeletal Musculoskeletal: Present: gait normal - Psychiatric Psychiatric: Present: A&O x's 3, appropriate affect, intact judgment & insight - Additional findings Additional findings: Breast Exam: BRA: 34C Inspection: Bilateral grade 2 ptosis; echymosis right breast related to recent biopsy Palpation: Right breast multi-positional exam nodularity in the medial aspect near the periareolar region approximately 2 cm in size freely mobile Right axilla: No adenopathy of concern Left breast: Multiple positional exam no dominant masses or nodules of concern Left axilla: No adenopathy of concern Assessment and Plan Assessment: Impression: radiculopathy left shoulder scoliosis bipolar anxiety/depression PTSD Right breast invasive ductal with lobular features carcinoma needs a left breast mammogram most recent September 2021 Plan: Right breast needle localization lumpectomy, possible central lumpectomy with removal of nipple areolar complex, right sentinel node injection, right sentinel node biopsy, possible right axillary node dissection, possible onco-plastic tissue transfer Clearance from Dr. Reed Cc: Dr. Reed
[~2022-12-19 09:35] MED LIST: DEXAMETHASONE SOD PHOSPHATE 4 MG/ML 1 ML VIAL IV ONE; HEPARIN SODIUM,PORCINE/PF 5,000 UNIT/0.5 ML SYRINGE SQ PRN; LACTATED RINGERS 1,000 ML IV SCH; LIDOCAINE 1% (10MG/ML) FOR IV START INTRADERMA PRN; ONDANSETRON 4 MG/2 ML VIAL IVP ONE; droPERidol 5 MG/2 ML VIAL IVP ONE
[2022-12-19] MEDS ORDERED: ALPRAZolam 0.5 MG TAB ONE (10:14)
[2022-12-19] MEDS ORDERED: ALPRAZolam 0.5 MG TAB PO ONE (10:18)
[2022-12-19] MEDS ORDERED: LACTATED RINGERS 1,000 ML IV ONE (10:25)
--- NOTE | 2022-12-19 11:04 | P.NAPBC ---
NAPBC Queries - NAPBC Queries Was patient's case review presented at [facility] tumor board? If no, comment.: Yes Was patient's pathology reviewed at [facility]? If no, comment.: Yes Was breast conservation surgery offered? If no, comment.: Yes Was sentinel node biopsy offered? If no, comment.: Yes Was diagnosis confirmed by percutaneous core biopsy? If no, comment.: Yes Is patient mastectomy patient?: No Was a preop referral to reconstructive surgeon offered?: No Clinical Stage: Stage 1 right breast invasive ductal with lobular features: [id number]+MN+H er2low+G2
[2022-12-19] MEDS ORDERED: LIDOCAINE 1% INJ 10MG/ML (20 ML MDV) SQ ONE (11:05)
[2022-12-19] MEDS ORDERED: LIDOCAINE 1% INJ 10MG/ML (20 ML MDV) ONE (11:53)
[2022-12-19] MEDS ORDERED: SUCCINYLCHOLINE CHLORIDE 200 MG/10 ML VIAL IV ONE (11:53)
[2022-12-19] MEDS ORDERED: fentaNYL (PF) 50 MCG/ML 2 ML AMP ONE (11:53)
[2022-12-19] MEDS ORDERED: MIDAZOLAM 2 MG/2 ML VIAL ONE (11:53)
[2022-12-19] MEDS ORDERED: ePHEDrine 50 MG/ML 1 ML VIAL ONE (11:53)
[2022-12-19] MEDS ORDERED: PROPOFOL 10 MG/ML 20 ML VIAL IV ONE (11:53)
--- NOTE | 2022-12-19 12:56 | NM ---
EXAMINATION TYPE: NM sentinel node injection DATE OF EXAM: 12/19/2022 COMPARISON: NONE CLINICAL INDICATION: Female, 57 years old with history of Breast cancer; TECHNIQUE AND FINDINGS: The procedure of sentinel lymph node injection was explained to the patient. The benefits, alternatives, and risks were discussed. An informed consent was then obtained. Overlying skin is cleaned with sterile alcohol. Following this, 495 uCi Tc99m Tilmanocept was inject ed in the upper outer aspect of the right nipple intradermally. The patient tolerated the procedure well without any immediate complication. The patient was kept in the radiology department for short stay after the procedure and then taken to surgery for surgical p rocedure what is presumed intraoperative gamma probe will be used for sentinel lymph node detection. IMPRESSION: Right breast radiotracer injection for sentinel node localization as above.
--- NOTE | 2022-12-19 13:30 | P.OP ---
Date of Procedure: 12/19/22 Preoperative Diagnosis: Right breast invasive ductal carcinoma with lobular features Postoperative Diagnosis: Same Procedure(s) Performed: Right sentinel node biopsy, right needle localization lumpectomy, onco-plastic tissue transfer 49 cm Anesthesia: NISHAA Surgeon: Denita Lopez Estimated Blood Loss (ml): 10 IV fluids (ml): 500 Pathology: other (Breast tissue and axillary sentinel node biopsy) Condition: stable Disposition: same day Indications for Procedure: Biopsy-proven right breast invasive ductal carcinoma with lobular features Operative Findings: Fibrofatty breast tissue Description of Procedure: The patient is a 57-year-old white female with a biopsy-proven right breast invasive ductal carcinoma with lobular features. The location is near the retroareolar region and we have discussed doing a central lumpectomy was necessary. She would prefer to save the nipple areolar complex as possible. The patient was first seen in the radiology department where needle localization of the area of concern was performed as well as injection for the sentinel lymph node with radioactive tracer. Following induction of anesthesia the neoprobe was used to interrogate the axilla. Radioactivity was noted in the axilla. The right breast and axilla were prepped and draped in a sterile fashion. The area of the axilla was approached initially. An incision was made at the area of greatest radioactivity. The deep axillary tissues were entered. Upon entering using the neoprobe and area of radioactivity was identified. This was grasped using an Allis clamp. It appeared to be noted in the specimen. This was excised using the Harmonic scalpel. The 10 second count on the lymph node was 39,561. Probable additional adenopathy was identified and this was removed. Dissection was performed from near the area of the axillary vein between the area of the thoracodorsal and long thoracic nerves. No additional not of concern was noted in the area. The 10 second background count was 34. After assured that hemostasis was attained the cavity was irrigated. The deep tissues were closed using 3-0 Vicryl suture. This was followed by closure of the skin with 4-0 Monocryl. Following this the breast was approached. An infra-areolar incision was made and carried down to the shaft of the needle. Surrounding tissue was excised. Careful dissection revealed that the proximity of the tumor seemed to be inferior to the areolar more than at the area itself. Skin was removed at that site. Additionally posteriorly dissection was performed onto the muscle of the pectoralis. After wide excision had been performed the specimen was removed. The cavity was 7 cm x 3 cm. Titanium clips were placed. The specimen was painted for orientation. The specimen was sent for radiograph and the area of concern was noted to be present. A superior pillar 6 x 3 cm was formed. An inferior pillar 5 by 2 cm was formed. Total onco-plastic tissue transfer was 49 cm. Surgicel in powder form was placed. The superior and inferior tissue was brought together using 3-0 Vicryl suture. The subcutaneous tissue was closed using 3-0 Vicryl suture. The skin was closed using 4-0 Monocryl subcuticular suture. Surgical glue was placed. The patient tolerated the procedure in stable condition. All instrument and sponge counts were correct at the end of the case.
--- NOTE | 2022-12-19 13:32 | P.DS ---
Providers Attending physician: Denita Lopez Primary care physician: Mark Randhawa Plan - Discharge Summary Discharge Rx Participant: No New Discharge Prescriptions: No Action cloNIDine HCL [Catapres] 0.1 mg PO DAILY Levothyroxine Sodium [Synthroid] 50 mcg PO DAILY@0630 HYDROcodone/APAP 5-325MG [[place] 5-325] 1 tab PO Q6H PRN PRN Reason: back pain Cyclobenzaprine HCl 10 mg PO HS PRN PRN Reason: back pain Losartan-Hctz 50-12.5 mg [Hyzaar 50-12.5] 1 tab PO DAILY Discharge Medication List cloNIDine HCL [Catapres] 0.1 mg PO DAILY 07/31/16 [History] Cyclobenzaprine HCl 10 mg PO HS PRN 12/14/22 [History] HYDROcodone/APAP 5-325MG [[place] 5-325] 1 tab PO Q6H PRN 12/14/22 [History] Levothyroxine Sodium [Synthroid] 50 mcg PO DAILY@0630 12/14/22 [History] Losartan-Hctz 50-12.5 mg [Hyzaar 50-12.5] 1 tab PO DAILY 12/14/22 [History] Follow up Appointment(s)/Referral(s): Denita Lopez MD [STAFF PHYSICIAN] - 12/28/22 10:00 am Activity/Diet/Wound Care/Special Instructions: Do not drive for 24 hours after discharge or if taking narcotic pain medicine May shower after 48 hours wear bra at all times
[2022-12-19 13:59] VITALS: TEMP 97.8
[2022-12-19] MEDS: fentaNYL (PF) 50 MCG/ML 2 ML AMP IV PRN ×2 (14:02→14:05)
[2022-12-19] MEDS ORDERED: HYDROcodone/APAP 5-325MG 1 EACH TAB ONE (14:55)
[2022-12-19] MEDS ORDERED: HYDROcodone/APAP 5-325MG 1 EACH TAB PO ONE (14:55)
[2022-12-19 15:21] VITALS: RESP 20
[2022-12-19 16:00] VITALS: BP 133/76; PULSE 80
--- NOTE | 2022-12-26 08:58 | MM ---
Reason for Exam: Additional evaluation requested from prior study. Last screening mammogram was performed 3 month(s) ago. Patient History: Menarche at age 14. First Full-Term at age 18. Postmenopausal. 09/21/2022, Ultrasound-Guided Core Biopsy on the Right side. Maternal aunt had breast cancer under age 50. Risk Values: [place] 5 year model risk: 1.0%. NCI Lifetime model risk: 6.0%. Prior Study Comparison: 10/21/2021 Bilateral Screening Mammogram, [facility]. 09/13/2022 Right Diagnostic Mammogram, [facility]. 10/11/2022 Left MG 3D diag mammo w/cad LT, [facility]. Tissue Density: Right: The breast tissue is heterogeneously dense. This may lower the sensitivity of mammography. Pathology Description: Location: retroareolar. Needle Type: 5 cm [place] Informed consent was obtained and all the patient's questions were answered. The lesion in question was localized sonographically. The standard sterile technique was utilized, as well as appropriate local anesthesia with 1% Lidocaine and bicarbonate. Localization needle followed by placement of a guidewire was performed under sonographic guidance. Verification images demonstrate appropriate deployment of the guidewire. The patient tolerated the procedure well and left the department in stable condition. Specimen radiograph demonstrates the mass and wire in question to reside within the specimen. IMPRESSION: Successful needle localization and open biopsy right breast with pathology results pending. Pathology Results: Result: Malignant, Invasive ductal carcinoma. A. RIGHT SENTINEL LYMPH NODE #1, BIOPSY: One of two lymph nodes positive for isolated tumor cells (ITC). CK7 and ROBBIE immunostains performed on blocks A1, A2, A3, A4, and A5 are confirmatory (controls appropriate). B. RIGHT AXILLARY TISSUE: Four lymph nodes negative for metastasis. C. RIGHT BREAST, LUMPECTOMY: Invasive moderately differentiated ductal carcinoma (Grade 2), focally involving the anterior margin. Other margins negative. See Surgical Pathology Cancer Case Summary. Overall Assessment: Malignant Assessment: MG diagnostic mammo RT wo CAD - Right: Known biopsy proven malignancy, BI-RAD 6. Management: Surgical Consultation of the right breast. Electronically signed and approved by: Oswald Carrillo M.D. Radiologis
== END 2022-12-19 16:50 | disposition home or self-care (01) ==
LOC: OR 09:35
PROVIDERS: ATTEND Surgery
DX: C50.311 Malignant neoplasm of lower-inner quadrant of right female breast (principal); F41.9 Anxiety disorder, unspecified; F43.10 Post-traumatic stress disorder, unspecified; F31.9 Bipolar disorder, unspecified; I10 Essential (primary) hypertension; M41.9 Scoliosis, unspecified; F10.90 Alcohol use, unspecified, uncomplicated; F17.200 Nicotine dependence, unspecified, uncomplicated; Z17.0 Estrogen receptor positive status [ER+]; Z88.5 Allergy status to narcotic agent; Z79.890 Hormone replacement therapy; Z79.899 Other long term (current) drug therapy
CPT/HCPCS: 38525; 84132; 88342; 88307; 88341; 77065; 76098; 19285; 38792; 19301; C1819; A9520; J2250; J0330; J1100; J2405; J2001; J3010; J2704; J1790; J1644

== ENCOUNTER → 2022-12-28 | Outpatient (CLI) | payer OTHER ==
--- NOTE | 2022-12-28 10:36 | P.PN ---
Progress Note - Text Progress Note Date: 12/28/22 Gaby is a 57 year old white female status post right lumpectomy and SNB. Her pathology showed 5 nodes 1 isolated tumor cells. Anterior margin (+) but skin removed. Examination: Lungs: Clear Heart: Regular rate and rhythm Incision axilla and breast clean and dry Impression: Focal area anteriorly positive margin, skin was removed however 2 further anterior margin would necessitate removal of the nipple areolar complex. At this time the patient would prefer to avoid this if she can safely be treated with radiation therapy. Plan: Appointment medical oncology Appointment radiation oncology Follow-up presentation at tumor board Follow-up here after presentation at tumor board CC: Cheyanne Lobo
[2022-12-28 10:41] VITALS: BP 120/66; PULSE 83; RESP 18; TEMP 97.4
== END ==
LOC: WWCWWP 10:02
PROVIDERS: ATTEND Surgery
DX: N63.0 Unspecified lump in unspecified breast (principal); L76.82 Other postprocedural complications of skin and subcutaneous tissue; Z88.5 Allergy status to narcotic agent

== ENCOUNTER 2024-04-20 22:23 | Emergency (ER) | payer OTHER ==
--- NOTE | 2024-04-20 22:54 | ED ---
General Adult HPI - General Chief complaint: Chest Pain Stated complaint: Hypertension Time Seen by Provider: 04/20/24 22:26 Source: patient, EMS, RN notes reviewed, old records reviewed Mode of arrival: EMS - History of Present Illness Initial comments: 58-year-old female presenting from [facility] for evaluation of hypertension. Patient has history of hypertension and has been on losartan and second agent has been added this week. She has been at [facility] for 1 week and been doing quite well with alcohol rehabilitation. Patient was sent in for evaluation of significantly elevated blood pressure. - Related Data Home Medications Medication Instructions Recorded Confirmed cloNIDine HCL [Catapres] 0.1 mg PO DAILY 07/31/16 12/28/22 Cyclobenzaprine HCl 10 mg PO HS PRN 12/14/22 12/28/22 HYDROcodone/APAP 5-325MG [[place] 1 tab PO Q6H PRN 12/14/22 12/28/22 5-325] Levothyroxine Sodium [Synthroid] 50 mcg PO DAILY@0630 12/14/22 12/28/22 Losartan-Hctz 50-12.5 mg [Hyzaar 1 tab PO DAILY 12/14/22 12/28/22 50-12.5] Previous Rx's Medication Instructions Recorded HYDROcodone/APAP 5-325MG [[place] 5] 1 - 2 each PO Q6HR PRN #20 tab 12/19/22 Allergies Allergy/AdvReac Type Severity Reaction Status Date / Time codeine Allergy Nausea & Verified 12/28/22 10:23 Vomiting morphine AdvReac Vomiting Unverified 12/28/22 10:23 Review of Systems ROS Statement: Those systems with pertinent positive or pertinent negative responses have been documented in the HPI. ROS Other: All systems not noted in ROS Statement are negative. Past Medical History Past Medical History: Hypertension, Thyroid Disorder, Vascular Disorder Additional Past Medical History / Comment(s): Bilateral legs, ,Vein stripping,Spondylosis of the cervical spine./ History of Any Multi-Drug Resistant Organisms: None Reported Past Surgical History: Uterine Ablation Additional Past Surgical History / Comment(s): Right Leg: Laser Surgery to remove varicose veins in 2010. Left Leg: Laser Surgery to remove varicose veins in 2011,Rhinoplasty. Lumpectomy right side. Past Anesthesia/Blood Transfusion Reactions: No Reported Reaction Past Psychological History: Anxiety, Depression, Panic Disorder Smoking Status: Never smoker Past Alcohol Use History: Abuse, Daily Past Drug Use History: Marijuana, Prescription Drug Abuse - Past Family History Mother Family Medical History: No Reported History Additional Family Medical History / Comment(s): Jaylen reports her mother has struggled with mental illness. Father Family Medical History: Unable to Obtain Brother(s) Family Medical History: No Reported History Son(s) Family Medical History: No Reported History General Exam General appearance: alert, in no apparent distress Head exam: Present: atraumatic, normocephalic Eye exam: Present: normal appearance, PERRL ENT exam: Present: mucous membranes dry Neck exam: Present: normal inspection. Absent: tenderness, meningismus Respiratory exam: Present: normal lung sounds bilaterally. Absent: respiratory distress, wheezes Cardiovascular Exam: Present: normal rhythm, tachycardia GI/Abdominal exam: Present: soft. Absent: distended, tenderness, guarding Extremities exam: Present: normal inspection, normal capillary refill. Absent: calf tenderness Neurological exam: Present: alert, oriented X3, CN II-XII intact. Absent: motor sensory deficit Psychiatric exam: Present: normal affect, normal mood Skin exam: Present: warm, dry, intact Course Vital Signs 04/20/24 04/20/24 22:25 23:00 Temperature 97.0 F L 98.6 F Pulse Rate 116 H 58 L Respiratory 18 20 Rate Blood Pressure 129/69 109/69 O2 Sat by Pulse 97 98 Oximetry Medical Decision Making - Medical Decision Making Was pt. sent in by a medical professional or institution (, PA, RESPONDER, urgent care, hospital, or fci...) When possible be specific @ -No Did you speak to anyone other than the patient for history (EMS, parent, family, police, friend...)? What history was obtained from this source @ -No Did you review nursing and triage notes (agree or disagree)? Why? @ -I reviewed and agree with nursing and triage notes Were old charts reviewed (outside hosp., previous admission, EMS record, old EKG, old radiological studies, urgent care reports/EKG's, fci records)? Report findings @ -No old charts were reviewed Differential Diagnosis: Asymptomatic hypertension, hypertensive urgency, hypertensive emergency EKG interpreted by me (3pts min.). @ -[Narrow complex rhythm possible ectopic atrial rhythm rate of 85, NJ interval 112, QRS duration 85, QTc [address] segment elevation. X-rays interpreted by me (1pt min.). @ -None done CT interpreted by me (1pt min.). @ -None done U/S interpreted by me (1pt. min.). @ -None done What testing was considered but not performed or refused? (CT, X-rays, U/S, labs)? Why? @ -None What meds were considered but not given or refused? Why? @ -None Did you discuss the management of the patient with other professionals (professionals i.e. , PA, RESPONDER, lab, RT, psych nurse, social science teacher, attending pathologist, teacher, staff air tactical officer, showcase trimmer)? Give summary @ -No Was smoking cessation discussed for >3mins.? @ -No Was critical care preformed (if so, how long)? @ -No Were there social determinants of health that impacted care today? How? (Homelessness, low income, unemployed, alcoholism, drug addiction, transp ortation, low edu. Level, literacy, decrease access to med. care, skilled nursing, rehab)? @ -No Was there de-escalation of care discussed even if they declined (Discuss DNR or withdrawal of care, Hospice)? DNR status @ -No What co-morbidities impacted this encounter? (DM, HTN, Smoking, COPD, CAD, Cancer, CVA, ARF, Chemo, Hep., AIDS, mental health diagnosis, sleep apnea, morbid obesity)? @History of hypertension Was patient admitted / discharged? Hospital course, mention meds given and route, prescriptions, significant lab abnormalities, going to OR and other pertinent info. @ -58-year-old female with elevated blood pressure from [facility]. Blood pressure is taken in the emergency department over the course of several hours that is essentially normal. I did obtain laboratory testing and the potassium was mildly low, this was replaced. Otherwise normal CBC CMP and troponin. Negative viral swab. Patient stable for discharge back to [facility]. Undiagnosed new problem with uncertain prognosis? @ -No Drug Therapy requiring intensive monitoring for toxicity (Heparin, Nitro, Insulin, Cardizem)? @ -No Were any procedures done? @ -No Diagnosis/symptom? @ -Hypertension Acute, or Chronic, or Acute on Chronic? @ -[Acute on chronic Uncomplicated (without systemic symptoms) or Complicated (systemic symptoms)? @ -Default Side effects of treatment? @ -No Exacerbation, Progression, or Severe Exacerbation? @ -No Poses a threat to life or bodily function? How? (Chest pain, [place], [place], pneumonia, PE, COPD, DKA, ARF, appy, cholecystitis, CVA, Diverticulitis, Homicidal, Suicidal, threat to staff... and all critical care pts) @ -No - Lab Data Result diagrams: 04/20/24 22:58 04/20/24 22:58 Lab Results 04/20/24 04/20/24 04/20/24 Range/Units 22:58 22:58 22:58 WBC 6.3 (3.8-10.6) k/uL RBC 4.06 (3.80-5.40) m/uL Hgb 12.1 (11.4-16.0) gm/dL Hct 36.1 (34.0-46.0) % MCV 89.1 (80.0-100.0) fL MCH 29.8 (25.0-35.0) pg MCHC 33.4 (31.0-37.0) g/dL RDW 14.4 (11.5-15.5) % Plt Count 259 (150-450) k/uL MPV 7.3 Neutrophils % 65 % Lymphocytes % 24 % Monocytes % 7 % Eosinophils % 2 % Basophils % 1 % Neutrophils # 4.1 (1.3-7.7) k/uL Lymphocytes # 1.5 (1.0-4.8) k/uL Monocytes # 0.4 (0-1.0) k/uL Eosinophils # 0.1 (0-0.7) k/uL Basophils # 0.0 (0-0.2) k/uL PT 10.8 (10.0-12.5) sec INR 1.0 (<1.2) APTT 20.0 L (22.0-30.0) sec Sodium 137 (137-145) mmol/L Potassium 3.2 L (3.5-5.1) mmol/L Chloride 100 (98-107) mmol/L Carbon Dioxide 25 (22-30) mmol/L Anion Gap 12 mmol/L BUN 15 (7-17) mg/dL Creatinine 1.10 H (0.52-1.04) mg/dL Est GFR (CKD-EPI)AfAm 64 (>60 ml/min/1.73 sqM) Est GFR (CKD-EPI)NonAf 55 (>60 ml/min/1.73 sqM) Glucose 99 (74-99) mg/dL Calcium 10.3 H (8.4-10.2) mg/dL Total Bilirubin 0.7 (0.2-1.3) mg/dL AST 27 (14-36) U/L ALT 18 (4-34) U/L Alkaline Phosphatase 73 (38-126) U/L Troponin I (0.000-0.034) ng/mL Total Protein 7.3 (6.3-8.2) g/dL Albumin 4.7 (3.5-5.0) g/dL Influenza Type A (PCR) (Not Detectd) Influenza Type B (PCR) (Not Detectd) RSV (PCR) (Not Detectd) SARS-CoV-2 (PCR) (Not Detectd) 04/20/24 04/20/24 Range/Units 22:58 22:58 WBC (3.8-10.6) k/uL RBC (3.80-5.40) m/uL Hgb (11.4-16.0) gm/dL Hct (34.0-46.0) % MCV (80.0-100.0) fL MCH (25.0-35.0) pg MCHC (31.0-37.0) g/dL RDW (11.5-15.5) % Plt Count (150-450) k/uL MPV Neutrophils % % Lymphocytes % % Monocytes % % Eosinophils % % Basophils % % Neutrophils # (1.3-7.7) k/uL Lymphocytes # (1.0-4.8) k/uL Monocytes # (0-1.0) k/uL Eosinophils # (0-0.7) k/uL Basophils # (0-0.2) k/uL PT (10.0-12.5) sec INR (<1.2) APTT (22.0-30.0) sec Sodium (137-145) mmol/L Potassium (3.5-5.1) mmol/L Chloride (98-107) mmol/L Carbon Dioxide (22-30) mmol/L Anion Gap mmol/L BUN (7-17) mg/dL Creatinine (0.52-1.04) mg/dL Est GFR (CKD-EPI)AfAm (>60 ml/min/1.73 sqM) Est GFR (CKD-EPI)NonAf (>60 ml/min/1.73 sqM) Glucose (74-99) mg/dL Calcium (8.4-10.2) mg/dL Total Bilirubin (0.2-1.3) mg/dL AST (14-36) U/L ALT (4-34) U/L Alkaline Phosphatase (38-126) U/L Troponin I <0.012 (0.000-0.034) ng/mL Total Protein (6.3-8.2) g/dL Albumin (3.5-5.0) g/dL Influenza Type A (PCR) Not Detected (Not Detectd) Influenza Type B (PCR) Not Detected (Not Detectd) RSV (PCR) Not Detected (Not Detectd) SARS-CoV-2 (PCR) Not Detected (Not Detectd) Disposition Clinical Impression: Hypertension Disposition: HOME SELF-CARE Condition: Fair Instructions (If sedation given, give patient instructions): Hypertension (ED) Is patient prescribed a controlled substance at d/c from ED?: No Referrals: Cheyanne Lobo FNPBC [Primary Care Provider] - 1-2 days Time of Disposition: 00:01
[2024-04-20] MEDS: SODIUM CHLORIDE 0.9% 1,000 ML IV ONE (23:10)
[2024-04-20 23:26] LABS: Basophils % (A) 1 %; Eosinophils # (A) 0.1 k/uL (0-0.7); Eosinophils % (A) 2 %; HCT 36.1 % (34.0-46.0); HGB 12.1 gm/dL (11.4-16.0); Lymphocytes # (A) 1.5 k/uL (1.0-4.8); Lymphocytes % (A) 24 %; MCH 29.8 pg (25.0-35.0); MCHC 33.4 g/dL (31.0-37.0); MCV 89.1 fL (80.0-100.0); Mean Platelet Volume 7.3; Monocytes # (A) 0.4 k/uL (0-1.0); Monocytes % (A) 7 %; Neutrophils # (A) 4.1 k/uL (1.3-7.7); Neutrophils % (A) 65 %; Platelet Count 259 k/uL (150-450); RBC 4.06 m/uL (3.80-5.40); RDW 14.4 % (11.5-15.5); WBC 6.3 k/uL (3.8-10.6)
[2024-04-20 23:31] LABS: ALT 18 U/L (4-34); AST 27 U/L (14-36); African American GFR (CKD) 64 (>60 ml/min/1.73 sqM); Albumin 4.7 g/dL (3.5-5.0); Alkaline Phosphatase 73 U/L (38-126); Anion Gap 12 mmol/L; Blood Urea Nitrogen 15 mg/dL (7-17); Calcium 10.3 mg/dL (8.4-10.2); Carbon Dioxide 25 mmol/L (22-30); Chloride 100 mmol/L (98-107); Glucose 99 mg/dL (74-99); Non-African American GFR(CKD) 55 (>60 ml/min/1.73 sqM); Potassium 3.2 mmol/L (3.5-5.1); Sodium 137 mmol/L (137-145); Total Bilirubin 0.7 mg/dL (0.2-1.3); Total Protein 7.3 g/dL (6.3-8.2)
[2024-04-20 23:38] LABS: Prothrombin Time 10.8 sec (10.0-12.5)
[2024-04-20 23:56] LABS: Influenza A Not Detected (Not Detectd); Influenza B Not Detected (Not Detectd); RSV Not Detected (Not Detectd)
[2024-04-21] MEDS: POTASSIUM CHLORIDE ER 20 MEQ TAB.ER PO STA (00:19)
[2024-04-21 00:30] VITALS: BP 129/66; PULSE 105; RESP 18; TEMP 98.5
== END 2024-04-21 00:30 | disposition home or self-care (01) ==
LOC: EC 22:23
DX: I10 Essential (primary) hypertension (principal); Z11.52 Encounter for screening for COVID-19; Z88.5 Allergy status to narcotic agent
CPT/HCPCS: 36415; 80053; 84484; 85025; 85610; 85730; 87636; 93005; 96360; 99285

== ENCOUNTER 2024-04-24 23:32 | Emergency (ER) | payer OTHER ==
[2024-04-24 23:47] VITALS: RESP 18
--- NOTE | 2024-04-25 00:03 | ED ---
Recheck HPI - General Source: patient, RN notes reviewed Mode of arrival: ambulatory Limitations: no limitations <Diamond Woodard - Last Filed: 04/25/24 00:01> <Tristen Whiting - Last Filed: 05/19/24 06:31> - General Chief Complaint: Recheck/Abnormal Lab/Rx Stated Complaint: low blood pressure Time Seen by Provider: 04/25/24 00:01 - History of Present Illness Initial Comments: Quick [id number] female sent from [place] due to low blood pressure. Patient was given antihypertensive medication and shortly after blood pressure medication was given, blood pressure reading was 96/58. Patient endorses fluli ke symptoms for the past several days. (Diamond Woodard) - Related Data Home Medications Medication Instructions Recorded Confirmed cloNIDine HCL [Catapres] 0.1 mg PO DAILY 07/31/16 12/28/22 Cyclobenzaprine HCl 10 mg PO HS PRN 12/14/22 12/28/22 HYDROcodone/APAP 5-325MG [[place] 1 tab PO Q6H PRN 12/14/22 12/28/22 5-325] Levothyroxine Sodium [Synthroid] 50 mcg PO DAILY@0630 12/14/22 12/28/22 Losartan-Hctz 50-12.5 mg [Hyzaar 1 tab PO DAILY 12/14/22 12/28/22 50-12.5] Previous Rx's Medication Instructions Recorded HYDROcodone/APAP 5-325MG [[place] 5] 1 - 2 each PO Q6HR PRN #20 tab 12/19/22 Oseltamivir [Tamiflu] 75 mg PO Q12HR #10 cap 04/25/24 Allergies Allergy/AdvReac Type Severity Reaction Status Date / Time codeine Allergy Nausea & Verified 04/24/24 23:47 Vomiting morphine AdvReac Vomiting Verified 04/24/24 23:47 Review of Systems ROS Other: All systems not noted in ROS Statement are negative. <Diamond Woodard - Last Filed: 04/25/24 00:01> ROS Other: All systems not noted in ROS Statement are negative. <Tristen Whiting - Last Filed: 05/19/24 06:31> ROS Statement: Those systems with pertinent positive or pertinent negative responses have been documented in the HPI. Past Medical History Past Medical History: Hypertension, Thyroid Disorder, Vascular Disorder Additional Past Medical History / Comment(s): Bilateral legs, ,Vein stripping,Spondylosis of the cervical spine./ History of Any Multi-Drug Resistant Organisms: None Reported Past Surgical History: Uterine Ablation Additional Past Surgical History / Comment(s): Right Leg: Laser Surgery to remove varicose veins in 2010. Left Leg: Laser Surgery to remove varicose veins in 2011,Rhinoplasty. Lumpectomy right side. Past Anesthesia/Blood Transfusion Reactions: No Reported Reaction Past Psychological History: Anxiety, Depression, Panic Disorder Smoking Status: Never smoker Past Alcohol Use History: Abuse, Daily Past Drug Use History: Marijuana, Prescription Drug Abuse - Past Family History Mother Family Medical History: No Reported History Additional Family Medical History / Comment(s): Jaylen reports her mother has struggled with mental illness. Father Family Medical History: Unable to Obtain Brother(s) Family Medical History: No Reported History Son(s) Family Medical History: No Reported History <Diamond Woodard - Last Filed: 04/25/24 00:01> General Exam Limitations: no limitations <Diamond Woodard - Last Filed: 04/25/24 00:01> Limitations: no limitations General appearance: alert, in no apparent distress Head exam: Present: atraumatic, normocephalic Eye exam: Present: normal appearance ENT exam: Present: mucous membranes dry Neck exam: Present: normal inspection Respiratory exam: Present: normal lung sounds bilaterally. Absent: respiratory distress, wheezes, rales, rhonchi, stridor, accessory muscle use Cardiovascular Exam: Present: regular rate, normal rhythm, normal heart sounds. Absent: systolic murmur, diastolic murmur, rubs, gallop GI/Abdominal exam: Present: soft. Absent: distended, tenderness, guarding Extremities exam: Present: normal inspection, normal capillary refill. Absent: pedal edema Back exam: Present: normal inspection. Absent: CVA tenderness (R), CVA tenderness (L) Neurological exam: Present: alert Skin exam: Present: warm, dry, intact, normal color. Absent: rash <Tristen Whiting - Last Filed: 05/19/24 06:31> - General Exam Comments Initial Comments: Visual Physical Exam Vital signs reviewed General: Well-appearing, nontoxic, no acute distress. Head: Normocephalic, atraumatic Eyes: PERRLA, EOMI ENT: Airway patent Chest: Nonlabored breathing Skin: No visual rash, normal skin tone Neuro: Alert and oriented 3 Musculoskeletal: No gross abnormalities (Diamond Woodard) Course Vital Signs 04/24/24 04/25/24 04/25/24 23:42 00:58 02:08 Temperature 97.5 F L 98.9 F Pulse Rate 98 81 78 Respiratory 18 18 18 Rate Blood Pressure 96/62 104/63 118/71 O2 Sat by Pulse 98 95 97 Oximetry Medical Decision Making <Diamond Woodard - Last Filed: 04/25/24 00:01> - Lab Data Result diagrams: 04/25/24 00:16 04/25/24 00:16 <Tristen Whiting - Last Filed: 05/19/24 06:31> - Medical Decision Making I completed the quick note portion of this chart signed Diamond Woodard PA-C (Diamond Chan) Was pt. sent in by a medical professional or institution (ANATOLIY Michael, [employer], urgent care, hospital, or halfway...) When possible be specific @ -[Patient is sent from [place] to have further evaluation Did you speak to anyone other than the patient for history (EMS, parent, family, police, friend...)? What history was obtained from this source @ -[No] Did you review nursing and triage notes (agree or disagree)? Why? @ -[I reviewed and agree with nursing and triage notes] Were old charts reviewed (outside hosp., previous admission, EMS record, old EKG, old radiological studies, urgent care reports/EKG's, halfway records)? Report findings @ -[No old charts were reviewed] Differential Diagnosis (chest pain, altered mental status, abdominal pain women, abdominal pain men, vaginal bleeding, weakness, fever, dyspnea, syncope, headache, dizziness, GI bleed, back pain, seizure, CVA, palpatations, mental health, musculoskeletal)? @ -[Differential Dizziness: Benign paroxysmal positional Vertigo, Meniere's disease, otitis media, acoustic neuroma, vertebrobasilar insufficiency, cerebellar stroke, encephalitis, hypovolemic, arrhythmia, coronary artery syndrome, anemia, this is not meant to be an all-inclusive list EKG interpreted by me (3pts min.). @ -[As above] X-rays interpreted by me (1pt min.). @ -[None done] CT interpreted by me (1pt min.). @ -[None done] U/S interpreted by me (1pt. min.). @ -[None done] What testing was considered but not performed or refused? (CT, X-rays, U/S, labs)? Why? @ -[None] What meds were considered but not given or refused? Why? @ -[None] Did you discuss the management of the patient with other professionals (professionals i.e. , PA, M[employer]WRIGHT INSTRUCTOR, lab, RT, psych nurse, social services coordinator, ink grinder, t eacher, chief program officer, renal case manager)? Give summary @ -[No] Was smoking cessation discussed for >3mins.? @ -[No] Was critical care preformed (if so, how long)? @ -[No] Were there social determinants of health that impacted care today? How? (Homelessness, low income, unemployed, alcoholism, drug addiction, transportation, low edu. Level, literacy, decrease access to med. care, prison, rehab)? @ -[No] Was there de-escalation of care discussed even if they declined (Discuss DNR or withdrawal of care, Hospice)? DNR status @ -[No] What co-morbidities impacted this encounter? (DM, HTN, Smoking, COPD, CAD, Cancer, CVA, ARF, Chemo, Hep., AIDS, mental health diagnosis, sleep apnea, morbid obesity)? @ -[None] Was patient admitted / discharged? Hospital course, mention meds given and route, prescriptions, significant lab abnormalities, going to OR and other pertinent info. @ -[Patient is 58-year-old woman sent here from [place] to have evaluation for hypotension. Patient history and physical raises possibility of viral infection and her swab does show influenza. Patient clinically looks mildly dehydrated and she is given IV fluids and does feel better, discussed appropriate further care and follow-up Undiagnosed new problem with uncertain prognosis? @ -[No] Drug Therapy requiring intensive monitoring for toxicity (Heparin, Nitro, Insulin, Cardizem)? @ -[No] Were any procedures done? @ -[No] Diagnosis/symptom? @ -[Acute influenza A infection Mild dehydration Acute, or Chronic, or Acute on Chronic? @ -[Acute uncomplicated Uncomplicated (without systemic symptoms) or Complicated (systemic symptoms)? @ -[default] Side effects of treatment? @ -[No] Exacerbation, Progression, or Severe Exacerbation? @ -[No] Poses a threat to life or bodily function? How? (Chest pain, USA, ND, pneumonia, PE, COPD, DKA, ARF, appy, cholecystitis, CVA, Diverticulitis, Homicidal, Suici mile, threat to staff... and all critical care pts) @ -[No] All treatments are based on ideal body weight as in ED triage (Tristen Whiting) - Lab Data Lab Results 04/24/24 04/25/24 04/25/24 Range/Units 23:49 00:16 00:16 WBC 3.9 (3.8-10.6) k/uL RBC 3.97 (3.80-5.40) m/uL Hgb 11.5 (11.4-16.0) gm/dL Hct 36.5 (34.0-46.0) % MCV 91.9 (80.0-100.0) fL MCH 29.1 (25.0-35.0) pg MCHC 31.6 (31.0-37.0) g/dL RDW 14.1 (11.5-15.5) % Plt Count 234 (150-450) k/uL MPV 7.2 Neutrophils % 69 % Lymphocytes % 18 % Monocytes % 8 % Eosinophils % 3 % Basophils % 0 % Neutrophils # 2.7 (1.3-7.7) k/uL Lymphocytes # 0.7 L (1.0-4.8) k/uL Monocytes # 0.3 (0-1.0) k/uL Eosinophils # 0.1 (0-0.7) k/uL Basophils # 0.0 (0-0.2) k/uL Sodium 134 L (137-145) mmol/L Potassium 3.5 (3.5-5.1) mmol/L Chloride 100 (98-107) mmol/L Carbon Dioxide 26 (22-30) mmol/L Anion Gap 8 mmol/L BUN 26 H (7-17) mg/dL Creatinine 0.89 (0.52-1.04) mg/dL Est GFR (CKD-EPI)AfAm 82 (>60 ml/min/1.73 sqM) Est GFR (CKD-EPI)NonAf 71 (>60 ml/min/1.73 sqM) Glucose 130 H (74-99) mg/dL Plasma Lactic Acid Los (0.7-2.0) mmol/L Calcium 9.5 (8.4-10.2) mg/dL Total Bilirubin 0.2 (0.2-1.3) mg/dL AST 24 (14-36) U/L ALT 16 (4-34) U/L Alkaline Phosphatase 70 (38-126) U/L Total Protein 6.6 (6.3-8.2) g/dL Albumin 4.1 (3.5-5.0) g/dL Influenza Type A (PCR) Detected A (Not Detectd) Influenza Type B (PCR) Not Detected (Not Detectd) RSV (PCR) Not Detected (Not Detectd) SARS-CoV-2 (PCR) Not Detected (Not Detectd) 04/25/24 Range/Units 00:16 WBC (3.8-10.6) k/uL RBC (3.80-5.40) m/uL Hgb (11.4-16.0) gm/dL Hct (34.0-46.0) % MCV (80.0-100.0) fL MCH (25.0-35.0) pg MCHC (31.0-37.0) g/dL RDW (11.5-15.5) % Plt Count (150-450) k/uL MPV Neutrophils % % Lymphocytes % % Monocytes % % Eosinophils % % Basophils % % Neutrophils # (1.3-7.7) k/uL Lymphocytes # (1.0-4.8) k/uL Monocytes # (0-1.0) k/uL Eosinophils # (0-0.7) k/uL Basophils # (0-0.2) k/uL Sodium (137-145) mmol/L Potassium (3.5-5.1) mmol/L Chloride (98-107) mmol/L Carbon Dioxide (22-30) mmol/L Anion Gap mmol/L BUN (7-17) mg/dL Creatinine (0.52-1.04) mg/dL Est GFR (CKD-EPI)AfAm (>60 ml/min/1.73 sqM) Est GFR (CKD-EPI)NonAf (>60 ml/min/1.73 sqM) Glucose (74-99) mg/dL Plasma Lactic Acid Los 1.9 (0.7-2.0) mmol/L Calcium (8.4-10.2) mg/dL Total Bilirubin (0.2-1.3) mg/dL AST (14-36) U/L ALT (4-34) U/L Alkaline Phosphatase (38-126) U/L Total Protein (6.3-8.2) g/dL Albumin (3.5-5.0) g/dL Influenza Type A (PCR) (Not Detectd) Influenza Type B (PCR) (Not Detectd) RSV (PCR) (Not Detectd) SARS-CoV-2 (PCR) (Not Detectd) Disposition <Diamond Woodard - Last Filed: 04/25/24 00:01> Is patient prescribed a controlled substance at d/c from ED?: No <Tristen Whiting - Last Filed: 05/19/24 06:31> Clinical Impression: Influenza A, Dehydration Disposition: HOME SELF-CARE Condition: Good Instructions (If sedation given, give patient instructions): Dehydration (ED), Influenza (DC) Prescriptions: Oseltamivir [Tamiflu] 75 mg PO Q12HR #10 cap Referrals: None,Stated [Primary Care Provider] - 1-2 days
[2024-04-25 00:22] LABS: Basophils % (A) 0 %; Eosinophils # (A) 0.1 k/uL (0-0.7); Eosinophils % (A) 3 %; HCT 36.5 % (34.0-46.0); HGB 11.5 gm/dL (11.4-16.0); Lymphocytes # (A) 0.7 k/uL (1.0-4.8); Lymphocytes % (A) 18 %; MCH 29.1 pg (25.0-35.0); MCHC 31.6 g/dL (31.0-37.0); MCV 91.9 fL (80.0-100.0); Mean Platelet Volume 7.2; Monocytes # (A) 0.3 k/uL (0-1.0); Monocytes % (A) 8 %; Neutrophils # (A) 2.7 k/uL (1.3-7.7); Neutrophils % (A) 69 %; Platelet Count 234 k/uL (150-450); RBC 3.97 m/uL (3.80-5.40); RDW 14.1 % (11.5-15.5); WBC 3.9 k/uL (3.8-10.6)
[2024-04-25 00:30] LABS: ALT 16 U/L (4-34); AST 24 U/L (14-36); African American GFR (CKD) 82 (>60 ml/min/1.73 sqM); Albumin 4.1 g/dL (3.5-5.0); Alkaline Phosphatase 70 U/L (38-126); Anion Gap 8 mmol/L; Blood Urea Nitrogen 26 mg/dL (7-17); Calcium 9.5 mg/dL (8.4-10.2); Carbon Dioxide 26 mmol/L (22-30); Chloride 100 mmol/L (98-107); Glucose 130 mg/dL (74-99); Non-African American GFR(CKD) 71 (>60 ml/min/1.73 sqM); Potassium 3.5 mmol/L (3.5-5.1); Sodium 134 mmol/L (137-145); Total Bilirubin 0.2 mg/dL (0.2-1.3); Total Protein 6.6 g/dL (6.3-8.2)
[2024-04-25 01:12] LABS: Influenza A Detected (Not Detectd); Influenza B Not Detected (Not Detectd); RSV Not Detected (Not Detectd)
[2024-04-25] MEDS: SODIUM CHLORIDE 0.9% 500 ML 500 ML IV STA (01:20)
[2024-04-25] MEDS: OSELTAMIVIR 75 MG CAP PO STA (02:05)
[2024-04-25 02:09] VITALS: BP 118/71; PULSE 78; TEMP 98.9
--- NOTE | 2024-04-25 02:47 | XR ---
EXAM: XR Chest, 2 Views CLINICAL HISTORY: ITS.REASON XR Reason: Upper resp syptoms TECHNIQUE: Frontal and lateral views of the chest. COMPARISON: None FINDINGS: Hardware: None. Lungs/pleura: Normal. No focal consolidation. No pleural effusion or pneumothorax. Heart/mediastinum: Normal. No cardiomegaly. Soft tissues: Unremarkable. Bones: No acute fracture. Upper abdomen: Normal. IMPRESSION: No acute disease is identified.
== END 2024-04-25 02:09 | disposition home or self-care (01) ==
LOC: EC 23:32
DX: J10.1 Influenza due to other identified influenza virus with other respiratory manifestations (principal); E86.0 Dehydration; Z88.5 Allergy status to narcotic agent
CPT/HCPCS: 36415; 71046; 80053; 83605; 85025; 87636; 93005; 99285

== ENCOUNTER → 2024-09-01 | Outpatient (CLI) | payer OTHER ==
--- NOTE | 2024-09-03 07:27 | MM ---
Reason for Exam: Hx of breast cancer, conservation therapy. Last mammogram was performed 1 year(s) and 1 month(s) ago. Patient History: Menarche at age 14. First Full-Term at age 18. Postmenopausal. Breast cancer, right, age 57. 12/19/2022, Lumpectomy on the Right side. 12/19/2022, Lumpectomy on the Right side. 12/19/2022, Malignant US breast localization RT on the right side. 09/21/2022, Ultrasound-Guided Core Biopsy on the Right side. 2022, Radiation Therapy on the right side. Maternal aunt had breast cancer under age 50. Tissue Density: The breasts are heterogeneously dense, which may obscure small masses. Findings: Analyzed By CAD. Persistent asymmetric size of the right breast with surgical clips. Persistent arterial vascular calcification bilaterally. No suspicious new mass or distortion in either breast. Overall Assessment: Benign, BI-RAD 2 Management: Diagnostic Mammogram of both breasts in 1 year. . Results were given to the patient verbally at the time of exam. Patient should continue monthly self-breast exams. A clinical breast exam by your physician is recommended on an annual basis. This exam should not preclude additional follow-up of suspicious palpable abnormalities. Note on America scores and lifetime risk: 1. A America score greater than 3% is considered moderate risk. If this is the case, consider specialist referral to assess eligibility for a risk reducing agent. 2. If overall lifetime risk for the development of breast cancer is 20% or higher, the patient may qualify for future screening with alternating mammogram and breast MRI. [facility], , 09/03/2024 7:24 AM. Electronically signed and approved by: Jalil Brunner M.D.
== END | disposition home or self-care (01) ==
LOC: RADMAMWWP 13:01
PROVIDERS: ATTEND Internal Medicine
DX: R92.8 Other abnormal and inconclusive findings on diagnostic imaging of breast (principal); R92.333 Mammographic heterogeneous density, bilateral breasts; Z78.0 Asymptomatic menopausal state; Z80.3 Family history of malignant neoplasm of breast; Z85.3 Personal history of malignant neoplasm of breast
CPT/HCPCS: 77066; G0279; 77062